=== PATIENT | male | born 1995 | race Two or more races ===

== ENCOUNTER 2024-10-03 12:28 | Emergency (ER) | payer OTHER ==
[~2024-10-03] VITALS: Ht 195.6 cm; Wt 149.7 kg
[2024-10-03] MEDS ORDERED: HYDR-3980 PO (14:51)
[2024-10-03 14:58] VITALS: BP 143/96; TEMP 98.6; O2SAT 97
== END 2024-10-03 14:58 | disposition home or self-care (01) ==
LOC: ER 12:28
DX: S16.1XXA Strain of muscle, fascia and tendon at neck level, initial encounter (principal); E78.5 Hyperlipidemia, unspecified; E88.810 Metabolic syndrome; I11.9 Hypertensive heart disease without heart failure; V89.2XXA Person injured in unspecified motor-vehicle accident, traffic, initial encounter; Y93.89 Activity, other specified; Y92.89 Other specified places as the place of occurrence of the external cause; Y99.8 Other external cause status
CPT/HCPCS: A4606; A4663